=== PATIENT | female | born 1995 | race Caucasian/White ===

== ENCOUNTER 2018-08-23 04:45 | Inpatient (IN) | payer OTHER ==
--- NOTE | 2018-08-23 08:17 | HP ---
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: Alzheimer's, CVA, Dementia, Migraine, Multiple Sclerosis, Peripheral Neuropathy, Parkinson's, Seizure, Syncope, TIA, Vertigo, Other Cardiovascular: No: AFIB, Aneurysm, Aortic Insufficiency, Aortic Stenosis, CAD, CHF, Deep Vein Thrombosis, HTN, Hyperlipdemia, CA, Mitral Insufficiency, Mitral Stenosis, Murmur, Pulmonary Hypertension, Other Pulmonary: No: Asthma, Bronchitis, Cancer, COPD, O2 Dependent, Pneumonia, Previously Intubated, Pulmonary Embolus, Pulmonary Fibrosis, Sleep Apnea, Other Gastrointestinal: No: Ascites, Cancer, Constipation, Crohn's Disease, Diverticulitis, Diverticulosis, Esophageal Varices, Gastritis, GERD, GI Bleed, Hemorrhoids, Hiatal Hernia, Inflamatory Bowel Disease, Irritable Bowel Disease, Pancreatitis, Peptic Ulcer Disease, Ulcerative Colitis, Other Hepatobiliary: No: Cirrhosis, Cholelithiasis, Cholecystitis, Choledocholithiasis , Hepatitis A, Hepatitis B, Hepatitis C, Other Renal/: No: Renal Failure, Renal Inusuff, BPH, Cancer, Hematuria, Hemodialysis , Neurogenic Bladder, Renal Calculi, UTI, Other Reproductive: No: Ectopic , Endometriosis, Fibroids, PID, Polycystic Ovary Syndrome, Postmenopausal, Other ...: 1 ...Para: 0 ...Term: 0 ...: 0 ...Spon : 0 ...Induced : 0 ...LMP: 11/12/17 ... Weeks Gestation by Dates: 40.4 ...EDC by Dates: 08/19/18 ...EDC by Sono: 08/19/18 Heme/Onc: No: Anemia, B12 Deficiency, Bleeding Disorder, Cancer, Current Chemotherapy, Current Radiation Therapy, Hemochromatosis, Hypercoaguable State, Myeloproliferative Synd, Sickle Cell Disease, Sickle Cell Trait, Thrombocytopenia, Other Infectious Disease: No: AIDS, C-Diff, Herpes Zoster, HIV, MRSA, STD's, Tuberculosis, VREF, Other Psych: No: Addictions, Anxiety, Bipolar, Depression, Panic, Psychosis, Schizophrenia, Other Musculoskeletal: No: Bursitis, Chronic low back pain, Hemiparesis, Hemiplegia, Osteoarthritis, Paraplegia, Other Rheumatology: No: Fibromyalgia, Gout, Lupus, Rheumatoid Arthritis, Sarcoidosis, Vasculitis, Other ENT: No: Allergic Rhinitis, Sinusitis, Other Endocrine: No: Bong's Disease, Basil's Disease, Diabetes Insipidus, Diabetes Mellitus, Hyperparathyroidism, Hyperthyroidism, Hypothyroidism, Osteopenia, SIADH, Other Dermatology: No: Basal Cell, Cellulitis, Eczema, Melanoma, Psoriasis, Squamous Cell, Other - Past Surgical History Past Surgical History: Yes: None Hx Myomectomy: No Hx Transabdominal Cerclage: No - Smoking History Smoking history: Never smoked Have you smoked in the past 12 months: No Aproximately how many cigarettes per day: 0 - Alcohol/Substance Use Hx Alcohol Use: No History of Substance Use: reports: None - Social History History of Recent Travel: No Home Medications - Allergies Allergies/Adverse Reactions: Allergies Allergy/AdvReac Type Severity Reaction Status Date / Time No Known Allergies Allergy Verified 08/23/18 01:27 - Home Medications Home Medications: Ambulatory Orders Pnv No.95/Ferrous Fum/Folic AC [ Formula] 1 each PO DAILY 08/22/18 Ferrous Sulfate [Feosol] 325 mg PO DAILY 08/23/18 Family Disease History - Family Disease History Family History: Unremarkable Review of Systems Findings/Remarks: painful contractions - Review of Systems Constitutional: reports: No Symptoms Eyes: reports: No Symptoms HENT: reports: No Symptoms Neck: reports: No Symptoms Cardiovascular: reports: No Symptoms Respiratory: reports: No Symptoms Gastrointestinal: reports: No Symptoms Genitourinary: reports: No Symptoms Breasts: reports: No Symptoms Reported Musculoskeletal: reports: No Symptoms, Muscle Weakness Neurological: reports: No Symptoms Endocrine: reports: No Symptoms Hematology/Lymphatic: reports: No Symptoms Psychiatric: reports: No Symptoms Physical Exam - Maternity Vital Signs: Vital Signs Temperature 98.5 F 08/23/18 05:27 Pulse Rate 112 H 08/23/18 05:27 Respiratory Rate 21 H 08/23/18 05:27 Blood Pressure 124/76 08/23/18 05:27 O2 Sat by Pulse Oximetry (%) Constitutional: Yes: Well Nourished Eyes: Yes: WNL HENT: Yes: Atraumatic, Normocephalic Neck: Yes: Supple Cardiovascular: Yes: Regular Rate and Rhythm Breast(s): Yes: Other (deferred) - Abdominal Exam/OB Number of Fetuses: Single Presentation: Vertex Contractions: Yes Regularity: Regular Intensity: Mod/Strong Monitor Mode: External Category: I (140, moderate, +accels, no decels) Accelerations: Uniform Decelerations: None (sporadic) - Vaginal Exam/OB Vaginal Bleediing: No Speculum Exam: No Dilatation (cm): 6 Effacement (%): 90 Amniotic Membrane Status: Intact Presentation: Vertex/Position Station: -3 (asynclitic) - Physical Exam Musculoskeletal: Yes: WNL Extremities: Yes: WNL Edema: Yes Edema: LLE: Trace, RLE: Trace Integumentary: Yes: WNL Psychiatric: Yes: Alert, Oriented - Labs Lab Results: ordered Hemorrhage Risk Assessment - Risk Factors Risk Score: 0 Risk Level: Low Risk Imaging - Results Ultrasound: Report Reviewed Problem List - Problems (1) Code(s): Z34.90 - ENCNTR FOR SUPRVSN OF NORMAL , UNSP, UNSP TRIMESTER Qualifiers: Weeks of gestation: 40 weeks Qualified Code(s): Z3A.40 - 40 weeks gestation of Assessment/Plan 23 y/o G1 @ 40.4wks, active labor, reassuring status and stable maternal condition, abnormal testing and amniocentesis revealed normal XY karyotype, desiring epidural -Expectant management -admission labs -epidural is ok -Re-evaluate appropriately
[2018-08-23 08:41] LABS: BASO % 0.4 % (0-2.0); HEMATOCRIT 38.4 % (32.4-45.2); HEMOGLOBIN 12.8 GM/dL (10.7-15.3); LYMPH % 5.9 % (8-40); MCH 28.3 pg (25.7-33.7); MCHC 33.4 g/dl (32.0-36.0); MEAN CELL VOLUME 84.7 fl (80-96); MONO % 2.3 % (3.8-10.2); NEUT % 91.4 % (42.8-82.8); PLATELET COUNT 309 K/MM3 (134-434); RBC 4.53 M/mm3 (3.60-5.2)
[2018-08-23] MEDS ORDERED: ELECTROLYTE-148 SOLN 1,000 ML IV SCH (08:45)
[2018-08-23 08:50] VITALS: BMI 39.4
[2018-08-23 08:53] LABS: BLOOD UREA NITROGEN 8.6 mg/dL (7-18); CALCIUM 9.1 mg/dL (8.5-10.1); CREATININE 0.5 mg/dL (0.55-1.3); POTASSIUM 4.2 mmol/L (3.5-5.1)
[2018-08-23] MEDS ORDERED: FENTANYL/BUPIVACAINE/NS/PF - PCEA - 50 ML DISP.SYRIN EP ONE ×2 (09:00→14:26)
[2018-08-23] MEDS ORDERED: BUPIVACAINE HCL/PF 0.25% (2.5MG/ML) 10 ML VIAL ONE (09:14)
[2018-08-23 09:24] LABS: INR 0.92 (0.83-1.09); PROTHROMBIN TIME (PATIENT) 10.8 SEC (9.7-13.0)
[2018-08-23 09:27] LABS: ACTIVATED PTT 27.7 SECONDS (25.2-36.5)
[2018-08-23] MEDS ORDERED: NALOXONE HCL 0.4 MG/ML VIAL IVPUSH PRN (09:43)
[2018-08-23] MEDS ORDERED: FENTANYL/BUPIVACAINE/NS/PF - PCEA - 50 ML DISP.SYRIN EP SCH (09:45)
[2018-08-23 11:36] LABS: ANISOCYTOSIS 0; HELMET CELLS 0; HOWELL-JOLLY BODIES 0; MACROCYTOSIS 0; OVALOCYTE 0; PLATELET ESTIMATE NORMAL; ROULEAU 0; SICKELED CELLS 0; TARGET CELLS 0; TEAR DROP CELLS 0; TOXIC GRANULATION 0
--- NOTE | 2018-08-23 11:42 | PN ---
Ante-Partal Exam - Subjective Subjective: Patient comfortable after epidural Vital Signs: Vital Signs Temperature 98.7 F 08/23/18 09:00 Pulse Rate 113 H 08/23/18 11:00 Respiratory Rate 18 08/23/18 11:00 Blood Pressure 111/63 08/23/18 11:00 O2 Sat by Pulse Oximetry (%) 97 08/23/18 11:00 Bleeding: No Headache: No Visual changes: No Right upper quadrant pain: No - Contractions Contractions: Yes Regularity: Regular Intensity: Unaware Monitor Mode: External - Exam during Labor Heart Rate: 135 (reactive) Variability: Moderate Category: I Monitor Accelerations: Present Monitor Decelerations: None Exam: Vaginal Dilatation (cm): 7 Effacement (%): 90 Amniotic Membrane Status: Ruptured (AROM, clear fluid) Amniotic Fluid: Clear Station: -3 (asynclitic and internal digital rotation attempted) - Assessment/Plan Assessment/Plan: 23 y/o G1 @ 40.4wk, S/P AROM, active labor, reassuring status -Expectant management
[2018-08-23] MEDS ORDERED: OXYTOCIN 30 UNITS in 0.9% NS 30 UNIT/500 ML INFUS.BAG IVPB SCH (13:00)
--- NOTE | 2018-08-23 13:16 | PN ---
Ante-Partal Exam - Subjective Subjective: Evaluation for progression of labor Vital Signs: Vital Signs Temperature 98.8 F 08/23/18 13:00 Pulse Rate 112 H 08/23/18 12:00 Respiratory Rate 18 08/23/18 12:00 Blood Pressure 107/67 08/23/18 12:00 O2 Sat by Pulse Oximetry (%) 99 08/23/18 12:00 Bleeding: No Headache: No Visual changes: No Right upper quadrant pain: No - Contractions Contractions: No Regularity: Irregular Intensity: Unaware Monitor Mode: External - Exam during Labor Variability: Moderate Category: I Monitor Accelerations: Present Monitor Decelerations: None Exam: Vaginal Dilatation (cm): 8 Effacement (%): 90 Amniotic Membrane Status: Ruptured Station: -3 - Assessment/Plan Assessment/Plan: IUPC in place and reassuring status -Monitor contraction patter -Consider pitocin
--- NOTE | 2018-08-23 14:37 | PN ---
Ante-Partal Exam - Subjective Subjective: Evaluated for progression of labor Vital Signs: Vital Signs Temperature 99.6 F 08/23/18 14:04 Pulse Rate 107 H 08/23/18 13:30 Respiratory Rate 18 08/23/18 13:30 Blood Pressure 133/77 08/23/18 13:30 O2 Sat by Pulse Oximetry (%) 99 08/23/18 13:30 Bleeding: No Headache: No Visual changes: No Right upper quadrant pain: No - Contractions Contractions: Yes Regularity: Regular Intensity: Mild/Mod Monitor Mode: External - Exam during Labor Variability: Moderate Category: I Monitor Accelerations: Present Monitor Decelerations: None Exam: Vaginal Dilatation (cm): 9 Effacement (%): 100 Amniotic Membrane Status: Ruptured Amniotic Fluid: Clear Station: -2 (asynclitic and internal digital rotation attempted) - Assessment/Plan Assessment/Plan: Anterior lip on pitocin augmentation, asynclitic and reassuring status -Continue pitocin augmentation
[2018-08-23] MEDS ORDERED: LIDOCAINE HCL 1% PRESERVATIVE FREE - 30ML VIAL ONE (14:43)
[2018-08-23] MEDS ORDERED: OXYTOCIN 20 UNITS in 0.9% NS 20 UNIT/1,000 ML INFUS.BAG IV ONE (14:43)
--- NOTE | 2018-08-23 15:39 | PN ---
Ante-Partal Exam - Subjective Subjective: progression of labor Vital Signs: Vital Signs Temperature 99.6 F 08/23/18 14:04 Pulse Rate 115 H 08/23/18 14:30 Respiratory Rate 18 08/23/18 14:30 Blood Pressure 103/52 L 08/23/18 14:30 O2 Sat by Pulse Oximetry (%) 100 08/23/18 14:30 Bleeding: No Headache: No Visual changes: No Right upper quadrant pain: No - Contractions Contractions: Yes Regularity: Regular Intensity: Mild/Mod Monitor Mode: External - Exam during Labor Variability: Moderate Category: I Monitor Accelerations: Present Monitor Decelerations: Early Exam: Vaginal Dilatation (cm): 10 Effacement (%): 100 Amniotic Membrane Status: Ruptured Amniotic Fluid: Clear Presentation: Vertex Station: 0 - Assessment/Plan Assessment/Plan: Second stage of labor, reassuring status, poor maternal expulsive efforts -passive descent -Anticipate vaginal delivery
[2018-08-23] MEDS ORDERED: WITCH HAZEL 50% (TUCKS) 40 PAD/JAR PAD TP PRN (17:13)
[2018-08-23] MEDS ORDERED: BENZOCAINE 20% 57 GM BOTTLE TP PRN (17:13)
[2018-08-23] MEDS ORDERED: BENZOCAINE 28 GM HEMORRHOIDAL OINTMENT TP PRN (17:13)
[2018-08-23] MEDS ORDERED: OXYTOCIN 20 UNITS in 0.9% NS 20 UNIT/1,000 ML INFUS.BAG IV SCH (17:15)
--- NOTE | 2018-08-23 17:23 | PN ---
Delivery - Delivery Type of Anesthesia: Epidural Episiotomy/Laceration: Vaginal Extension/lac (1st degree laceration) EBL (cc): 250 Delivery, Single - Stages of Labor Placenta: Yes: Spontaneous (intact, 3VC) - Condition of Stunt Person/Linux Architect Present: No Infant Gender: Male Position: Left, OA - [place] Feeding Plan Initial Plan: Elected not to breastfeed exclusively throughout hospitalization Remarks - Remarks Remarks: 's head delivered with maternal expulsive efforts, EPHRAIM. No nuchal cord present and shoulders delivered without difficulty, followed by the rest of the body. Loose right podalic cord present and removed. Cord clamped after delay and cut. Sample for blood obtained. Placenta delivered spontaneously and intact , 3VC. Exam revealed 1st degree right vaginal laceration and mild right posterior labial majora laceration. It was repaired in standard fashion with 2.0 and 3.0 vicryl suture. Excellent hemostasis and reapproximation noted. Fundus is firm and sponge/instrument count correct x 2 and confirmed by nurse. Patient is in stable condition.
[2018-08-24] MEDS: IBUPROFEN 600 MG TABLET (FP) PO PRN ×3 (07:20→21:15)
[2018-08-24] MEDS: ACETAMINOPHEN 325 MG TABLET (FP) PO PRN ×3 (07:21→21:14)
[2018-08-24 07:44] LABS: BASO % 0.3 % (0-2.0); EOS % 0.1 % (0-4.5); HEMATOCRIT 30.6 % (32.4-45.2); HEMOGLOBIN 10.4 GM/dL (10.7-15.3); LYMPH % 13.6 % (8-40); MCH 28.9 pg (25.7-33.7); MCHC 33.9 g/dl (32.0-36.0); MEAN CELL VOLUME 85.2 fl (80-96); MEAN PLT VOLUME 8.8 fl (7.5-11.1); MONO % 5.9 % (3.8-10.2); NEUT % 80.1 % (42.8-82.8); RBC 3.59 M/mm3 (3.60-5.2); RDW 15.3 % (11.6-15.6); WHITE BLOOD COUNT 16.2 K/mm3 (4.0-10.0)
[2018-08-24 08:53] LABS: PLATELET COUNT 248 K/MM3 (134-434)
--- NOTE | 2018-08-24 09:17 | PN ---
Post Progress Note - Subjective Subjective: ambulating, tolerating PO, lochia decreased, voiding, attempting to breast feed Type of Delivery: Vital Signs: Vital Signs Temperature 98.5 F 08/24/18 06:00 Pulse Rate 89 08/24/18 06:00 Respiratory Rate 18 08/24/18 06:00 Blood Pressure 99/53 L 08/24/18 06:00 O2 Sat by Pulse Oximetry (%) 99 08/23/18 18:15 Breast Exam: Yes: Other (deferred) Uterus: Yes: Fundus Firm Abdomen/GI: Yes: Abdomen soft Lochia, amount: Small Extremities: Yes: Calves non-tender Activity: Ambulating - Labs Labs: CBC WBC 16.2 K/mm3 (4.0-10.0) H 08/24/18 06:58 RBC 3.59 M/mm3 (3.60-5.2) L 08/24/18 06:58 Hgb 10.4 GM/dL (10.7-15.3) L 08/24/18 06:58 Hct 30.6 % (32.4-45.2) L D 08/24/18 06:58 MCV 85.2 fl (80-96) 08/24/18 06:58 MCH 28.9 pg (25.7-33.7) 08/24/18 06:58 MCHC 33.9 g/dl (32.0-36.0) 08/24/18 06:58 RDW 15.3 % (11.6-15.6) 08/24/18 06:58 Plt Count 248 K/MM3 (134-434) 08/24/18 06:58 MPV 8.8 fl (7.5-11.1) 08/24/18 06:58 Absolute Neuts (auto) 12.9 K/mm3 (1.5-8.0) H 08/24/18 06:58 Neutrophils % 80.1 % (42.8-82.8) 08/24/18 06:58 Neutrophils % (Manual) 93.0 % (42.8-82.8) H 08/23/18 08:20 Band Neutrophils % 2.0 % 08/23/18 08:20 Lymphocytes % 13.6 % (8-40) D 08/24/18 06:58 Lymphocytes % (Manual) 3.0 % (8-40) L 08/23/18 08:20 Monocytes % 5.9 % (3.8-10.2) D 08/24/18 06:58 Monocytes % (Manual) 2 % (3.8-10.2) L 08/23/18 08:20 Eosinophils % 0.1 % (0-4.5) D 08/24/18 06:58 Eosinophils % (Manual) 0.0 % (0-4.5) 08/23/18 08:20 Basophils % 0.3 % (0-2.0) 08/24/18 06:58 Basophils % (Manual) 0.0 % (0-2.0) 08/23/18 08:20 Myelocytes % (Man) 0 % (0-2) 08/23/18 08:20 Promyelocytes % (Man) 0 % (0-2) 08/23/18 08:20 Blast Cells % (Manual) 0 % (0-0) 08/23/18 08:20 Nucleated RBC % 0 % (0-0) 08/24/18 06:58 Metamyelocytes 0 % (0-2) 08/23/18 08:20 Hypochromia 0 08/23/18 08:20 Toxic Granulation 0 08/23/18 08:20 Dohle Bodies 0 08/23/18 08:20 Platelet Estimate Normal 08/23/18 08:20 Polychromasia 0 08/23/18 08:20 Poikilocytosis 0 08/23/18 08:20 Basophilic Stippling 0 08/23/18 08:20 Anisocytosis 0 08/23/18 08:20 Microcytosis 0 08/23/18 08:20 Macrocytosis 0 08/23/18 08:20 Spherocytes 0 08/23/18 08:20 Sickle Cells 0 08/23/18 08:20 Target Cells 0 08/23/18 08:20 Tear Drop Cells 0 08/23/18 08:20 Ovalocytes 0 08/23/18 08:20 Stomatocytes 0 08/23/18 08:20 Helmet Cells 0 08/23/18 08:20 Portillo-Olar Bodies 0 08/23/18 08:20 Scott Rings 0 08/23/18 08:20 [place] Cells 0 06/29/19 08:20 Acanthocytes (Spur) 0 08/23/18 08:20 Rouleaux 0 08/23/18 08:20 Fragmented RBCs 0 08/23/18 08:20 Schistocytes 0 08/23/18 08:20 Problem List - Problems (1) Code(s): Z34.90 - ENCNTR FOR SUPRVSN OF NORMAL , UNSP, UNSP TRIMESTER Qualifiers: Weeks of gestation: 40 weeks Qualified Code(s): Z3A.40 - 40 weeks gestation of Assessment/Plan 23 y/o on PPD # 1 in stable condition, elevated WBC but trending down, episode of borderline temp overnight and all repeats WNL -Continue PP care -F/U labs -Anticipate D/C home tomorrow
[2018-08-24] MEDS ORDERED: SENNOSIDES/DOCUSATE COMBO (SENNA PLUS) TABLET (UD) PO PRN (22:00)
[2018-08-25 08:05] LABS: BASO % 0.5 % (0-2.0); EOS % 1.1 % (0-4.5); HEMATOCRIT 29.5 % (32.4-45.2); HEMOGLOBIN 9.9 GM/dL (10.7-15.3); LYMPH % 18.1 % (8-40); MCH 28.7 pg (25.7-33.7); MCHC 33.6 g/dl (32.0-36.0); MEAN CELL VOLUME 85.3 fl (80-96); MEAN PLT VOLUME 9.2 fl (7.5-11.1); NEUT % 74.3 % (42.8-82.8); PLATELET COUNT 246 K/MM3 (134-434); RBC 3.46 M/mm3 (3.60-5.2); RDW 15.3 % (11.6-15.6); WHITE BLOOD COUNT 11.3 K/mm3 (4.0-10.0)
--- NOTE | 2018-08-25 08:36 | DS ---
Physical Examination Vital Signs: Vital Signs Temperature 98.6 F 08/24/18 22:00 Pulse Rate 89 08/24/18 22:00 Respiratory Rate 18 08/24/18 22:00 Blood Pressure 119/51 L 08/24/18 22:00 O2 Sat by Pulse Oximetry (%) 99 08/23/18 18:15 Findings/Remarks: patient is doing well, ambulating, passing flatus, tolerating PO, breast feeding Constitutional: Yes: Well Nourished Eyes: Yes: WNL HENT: Yes: Atraumatic Neck: Yes: Supple Cardiovascular: Yes: Regular Rate and Rhythm Respiratory: Yes: Regular Gastrointestinal: Yes: Soft (fundus is firm) ...Rectal Exam: Yes: Deferred Renal/: Yes: Other (deferred) Breast(s): Yes: Other (deferred) Musculoskeletal: Yes: WNL Extremities: Yes: WNL (no CT) Edema: Yes Edema: LLE: Trace, RLE: Trace Integumentary: Yes: WNL Wound/Incision: Yes: Clean/Dry (laceration repaired) Neurological: Yes: Alert, Oriented ...Motor Strength: WNL Psychiatric: Yes: Alert, Oriented Labs: CBC, BMP 08/25/18 06:26 08/23/18 08:20 Discharge Summary Reason For Visit: LABOR Current Active Problems (Acute) Procedures: Principal: delivery Hospital Course: uncomplicated Condition: Stable - Instructions Diet, Activity, Other Instructions: Regular diet, PP precautions discussed and all questions answered, PP visit in 6 -8wks Referrals: Noe Adkins MD [Staff Physician] - Disposition: HOME - Home Medications Comprehensive Discharge Medication List: Ambulatory Orders Pnv No.95/Ferrous Fum/Folic AC [ Formula] 1 each PO DAILY 08/22/18 Ferrous Sulfate [Feosol] 325 mg PO DAILY 08/23/18
[2018-08-25 08:54] VITALS: BP 127/76; PULSE 98; TEMP 98
== END 2018-08-25 09:45 | disposition home or self-care (01) | DRG 560 ==
LOC: JDEL 04:45 → JLDR 08:00 → J3W 20:00
PROVIDERS: ADMIT Student in an Organized Health Care Education/Training Program; ATTEND Student in an Organized Health Care Education/Training Program
PROC: 0HQ9XZZ Repair Perineum Skin, External Approach (ICD-10-PCS; principal; 2018-08-23)
PROC: 10E0XZZ Delivery of Products of Conception, External Approach (ICD-10-PCS; 2018-08-23)
DX: O48.0 Post-term pregnancy (principal); O70.0 First degree perineal laceration during delivery; Z3A.40 40 weeks gestation of pregnancy; Z37.0 Single live birth
CPT/HCPCS: 36415; 59025; 59409; 80048; 85025; 85610; 85730; 86593; 86850; 86900; 86901

== ENCOUNTER 2020-01-27 06:00 | Inpatient (IN) | payer OTHER ==
[2020-01-27] MEDS ORDERED: CITRIC ACID/SODIUM CITRATE 30 ML UNIT-DOSE CUP PO ONE (06:49)
[2020-01-27 06:54] VITALS: BMI 39.4
[2020-01-27] MEDS ORDERED: ELECTROLYTE-148 SOLN 1,000 ML IV SCH (07:00)
[2020-01-27] MEDS: ELECTROLYTE-148 SOLN 1,000 ML IV SCH (07:17)
[2020-01-27] MEDS ORDERED: morphine SULFATE/PF 0.5 MG/ML (2cc Syringe - QUVA) ONE (08:01)
[2020-01-27] MEDS ORDERED: KETOROLAC TROMETHAMINE 30 MG/1 ML VIAL ONE (08:02)
[2020-01-27] MEDS ORDERED: OXYTOCIN 10 UNITS/ML VIAL ONE (08:02)
[2020-01-27] MEDS ORDERED: ceFAZolin SODIUM 1 GM VIAL ONE (08:02)
[2020-01-27] MEDS ORDERED: morphine SULFATE/PF 0.5 MG/ML (2cc Syringe - QUVA) EP ONE (08:09)
[2020-01-27] MEDS ORDERED: ePHEDrine SULFATE 50 MG/1 ML AMPULE ONE (08:15)
[2020-01-27] MEDS ORDERED: ONDANSETRON 4 MG/2 ML VIAL IVPUSH PRN (09:27)
[2020-01-27] MEDS ORDERED: ACETAMINOPHEN 1000 MG/100 ML VIAL (NON FORMULARY) IVPB ONE (09:29)
[2020-01-27] MEDS ORDERED: oxyCODONE HCL 5 MG TABLET PO PRN ×2 (09:30)
[2020-01-27] MEDS ORDERED: METHYLERGONOVINE MALEATE 0.2 MG/1 ML AMP IM PRN (09:30)
[2020-01-27] MEDS ORDERED: BENZOCAINE 20% 57 GM BOTTLE TP PRN (09:30)
[2020-01-27] MEDS ORDERED: WITCH HAZEL 50% (TUCKS) 40 PAD/JAR PAD TP PRN (09:30)
[2020-01-27] MEDS ORDERED: DEXTROSE 5%-LACTATED RINGERS 1,000 ML IV SCH (09:30)
[2020-01-27] MEDS ORDERED: BENZOCAINE 28 GM HEMORRHOIDAL OINTMENT RC PRN (09:30)
[2020-01-27] MEDS ORDERED: diphenhydrAMINE HCL 25 MG CAPSULE (FP) PO PRN (09:30)
[2020-01-27] MEDS ORDERED: OXYTOCIN 20 UNITS in 0.9% NS 20 UNIT/1,000 ML INFUS.BAG IV SCH (09:30)
[2020-01-27 09:40] LABS: CORD HCO3 23.5 mmHg (20-29); CORD PCO2 52.3 mmHg (30-78); CORD pH 7.271 (7.14-7.44)
[2020-01-27 09:45] LABS: CORD HCO3 27.9 mmHg (20-29); CORD PCO2 82.2 mmHg (30-78); CORD pH 7.149 (7.14-7.44)
[2020-01-27] MEDS: IBUPROFEN 800 MG/8 ML IJ IVPB PRN ×2 (10:52→21:59)
[2020-01-27] MEDS: CEFAZOLIN 1 GM/D5W 1 GM/50 ML BAG IVPB SCH ×2 (12:20→17:46)
[2020-01-27] MEDS: OXYTOCIN 20 UNITS in 0.9% NS 20 UNIT/1,000 ML INFUS.BAG IV SCH (21:59)
[2020-01-28] MEDS: IBUPROFEN 600 MG TABLET (FP) PO PRN ×4 (05:53→20:07)
[2020-01-28] MEDS: SIMETHICONE 80 MG TAB.CHEW (FP) PO PRN ×4 (05:53→20:06)
[2020-01-28] MEDS: ACETAMINOPHEN 325 MG TABLET (FP) PO PRN ×4 (05:54→20:06)
[2020-01-28 09:11] LABS: BASO % 0.2 % (0-2.0); EOS % 0.5 % (0-4.5); HEMATOCRIT 33.9 % (32.4-45.2); HEMOGLOBIN 11.4 GM/dL (10.7-15.3); LYMPH % 15.6 % (8-40); MCH 28.9 pg (25.7-33.7); MCHC 33.6 g/dl (32.0-36.0); MEAN CELL VOLUME 85.9 fl (80-96); MONO % 5.8 % (3.8-10.2); NEUT % 77.9 % (42.8-82.8); PLATELET COUNT 270 K/MM3 (134-434); RBC 3.95 M/mm3 (3.60-5.2); RDW 14.9 % (11.6-15.6); WHITE BLOOD COUNT 10.1 K/mm3 (4.0-10.0)
[2020-01-28] MEDS ORDERED: BISACODYL 10 MG SUPP.RECT PR PRN (09:30)
[2020-01-28] MEDS: ENOXAPARIN NA (PORCINE) 40 MG/0.4 ML DISP.SYRIN SQ SCH (10:31)
[2020-01-28] MEDS: ELECTROLYTE-148 SOLN 1,000 ML IV SCH (12:12)
[2020-01-28] MEDS: OXYTOCIN 20 UNITS in 0.9% NS 20 UNIT/1,000 ML INFUS.BAG IV SCH (12:12)
[2020-01-28 21:30] VITALS: PULSE 84; TEMP 97.6
[2020-01-29] MEDS: IBUPROFEN 600 MG TABLET (FP) PO PRN (08:58)
[2020-01-29] MEDS: ACETAMINOPHEN 325 MG TABLET (FP) PO PRN (08:59)
[2020-01-29] MEDS: ENOXAPARIN NA (PORCINE) 40 MG/0.4 ML DISP.SYRIN SQ SCH (09:00)
[2020-01-29 10:44] VITALS: BP 100/65
[2020-01-29] MEDS ORDERED: SENNOSIDES/DOCUSATE COMBO (SENNA PLUS) TABLET (UD) PO PRN (22:00)
== END 2020-01-29 12:05 | disposition home or self-care (01) | DRG 540 ==
LOC: JLDR 06:00 → J3W 10:32
PROVIDERS: ADMIT Obstetrics & Gynecology; ATTEND Obstetrics & Gynecology
PROC: 10D00Z1 Extraction of Products of Conception, Low, Open Approach (ICD-10-PCS; principal; 2020-01-27)
DX: O32.8XX0 Maternal care for other malpresentation of fetus, not applicable or unspecified (principal); O99.214 Obesity complicating childbirth; Z3A.39 39 weeks gestation of pregnancy; Z37.0 Single live birth
CPT/HCPCS: 36415; 36600; 82803; 85025; 88307-TC

== ENCOUNTER 2020-09-11 23:27 | Emergency (ER) | payer OTHER ==
[2020-09-11 23:33] VITALS: TEMP 98.2; BMI 42.5
[2020-09-12] MEDS ORDERED: DEXAMETHASONE 4 MG TABLET (FP) PO ONE (01:50)
[2020-09-12] MEDS ORDERED: ACETAMINOPHEN 500 MG TABLET (FP) PO ONE (01:50)
[2020-09-12] MEDS ORDERED: SODIUM CHLORIDE 0.9% 500 ML INFUS.BAG IV ONE (02:10)
[2020-09-12] MEDS ORDERED: ACETAMINOPHEN 325 MG TABLET (FP) ONE ×2 (02:22→02:23)
[2020-09-12] MEDS ORDERED: DEXAMETHASONE 4 MG TABLET (FP) ONE (02:23)
[2020-09-12] MEDS ORDERED: KETOROLAC TROMETHAMINE 15 MG/ML VIAL IM ONE (03:17)
[2020-09-12] MEDS ORDERED: KETOROLAC TROMETHAMINE 15 MG/ML VIAL ONE (03:28)
[2020-09-12] MEDS ORDERED: KETOROLAC TROMETHAMINE 15 MG/ML VIAL IVPUSH ONE (03:29)
[2020-09-12] MEDS ORDERED: PENICILLIN G BENZATHINE 1,200,000 UNIT/2 ML PFS IM ONE ×2 (04:18→04:19)
[2020-09-12 04:34] VITALS: BP 144/64; PULSE 76
== END 2020-09-12 04:45 | disposition home or self-care (01) ==
LOC: JER 23:27
PROC: 3E0233Z Introduction of Anti-inflammatory into Muscle, Percutaneous Approach (ICD-10-PCS; principal; 2020-09-12)
PROC: 3E0333Z Introduction of Anti-inflammatory into Peripheral Vein, Percutaneous Approach (ICD-10-PCS; 2020-09-12)
PROC: 3E02329 Introduction of Other Anti-infective into Muscle, Percutaneous Approach (ICD-10-PCS; 2020-09-12)
DX: J02.0 Streptococcal pharyngitis (principal)
CPT/HCPCS: 84703; 87880; 99284-25